=== PATIENT | male | born 1935 | race Two or more races ===

== ENCOUNTER 2018-05-27 10:18 | Outpatient (CLI) | payer OTHER ==
[~2018-05-27 10:18] MED LIST: ASPIR 8181 MG; LIPITOR20 MG; NORVASC5 MG
== END 2018-05-27 10:36 | disposition home or self-care (01) ==
LOC: TOM 10:18
DX: K56.600 Partial intestinal obstruction, unspecified as to cause (principal); K56.50 Intestinal adhesions [bands], unspecified as to partial versus complete obstruction; K63.5 Polyp of colon

== ENCOUNTER 2018-07-19 07:25 | Outpatient (CLI) | payer OTHER | END 2018-07-19 07:31 | disposition home or self-care (01) | LOC: RX STUDY 07:25 | DX: K92.1 Melena (principal); R10.13 Epigastric pain ==

== ENCOUNTER 2018-08-01 07:29 | Outpatient (CLI) | payer OTHER | END 2018-08-01 07:33 | disposition home or self-care (01) | LOC: TOM 07:29 | DX: R10.31 Right lower quadrant pain (principal); R10.32 Left lower quadrant pain ==